=== PATIENT | female | born 2000 | race Hispanic/Latino ===

== ENCOUNTER 2019-01-02 14:38 | Emergency (ER) | payer MEDICAID, SELFPAY ==
[2019-01-02 15:01] LABS: #Basophils 0.1 thou/uL (0.0-0.2); #Eosinphils 0.3 thou/uL (0.0-0.7); #Lymphocytes 3.4 thou/uL (1.20-3.40); #Monocytes 0.5 thou/uL (0.11-0.59); %Basophils 0.9 % (0.0-1.0); %Eosinophils 3.5 % (0.0-10.0); %Lymphocytes 47.2 % (28.0-48.0); %Monocytes 6.4 % (0.0-4.0); %Neutrophils 41.9 % (31.0-61.0); Hemoglobin 13.1 g/dL (12.0-16.0); Mean Corpuscular HGB CONC 33.8 g/dL (32.0-36.0); Mean Corpuscular Hemoglobin 28.2 pg (25.0-35.0); Mean Corpuscular Volume 83.5 fL (78.0-98.0); Mean Platelet Volume 6.8 fL (7.4-10.4); Platelet Count 416 thou/uL (130-400); RBC Distribution Width 11.9 % (11.5-14.5); Red Blood Cell (RBC) Count 4.63 mill/uL (4.00-5.20); White Blood Cell (WBC) Count 7.1 thou/uL (4.8-10.8)
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
[2019-01-02 15:21] LABS: ALT (SGPT) 13 U/L (8-55); AST (SGOT) 19 U/L (5-30); Albumin 4.9 g/dL (3.5-5.0); Alcohol Less than 10 mg/dL (Less than 10); Alkaline Phosphatase 73 U/L (40-150); Anion Gap 13 mmol/L (10-20); BUN (Urea Nitrogen) 10 mg/dL (8.4-21.0); Bilirubin, Total 0.4 mg/dL (0.2-1.2); Calc. Creatinine Clearance 0 mL/min (70-130); Calcium 9.8 mg/dL (7.8-10.44); Carbon Dioxide 24 mmol/L (22-29); Chloride 102 mmol/L (98-107); Estimated GFR-MDRD Greater than 90; Globulin 3.2 g/dL (2.4-3.5); Glucose 96 mg/dL (70-105); Potassium 3.7 mmol/L (3.5-5.1); Protein, Total 8.1 g/dL (6.0-8.3); Sodium 135 mmol/L (136-145)
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
[2019-01-02] MEDS ORDERED: Morphine 4 MG/ML VIAL ONE (16:14)
[2019-01-02] MEDS ORDERED: Ondansetron PF 4 MG/2 ML Vial ONE (16:14)
== END 2019-01-02 14:45 | disposition home or self-care (01) ==
LOC: ERS 14:38
DX: S82.142A Displaced bicondylar fracture of left tibia, initial encounter for closed fracture (principal); S00.83XA Contusion of other part of head, initial encounter; V03.99XA Pedestrian with other conveyance injured in collision with car, pick-up truck or van, unspecified whether traffic or nontraffic accident, initial encounter
CPT/HCPCS: 70450; 80053; 80307; 85025; 96374; 96375; G0390; J2270; J2405

== ENCOUNTER 2019-01-05 12:49 | Outpatient (CLI) | payer SELFPAY ==
[2019-01-05 14:58] LABS: BHCG - Serum Negative (NEGATIVE); Pregs Control Background? CLEAR/WHITE (CLR/WHITE); Pregs Control Bar Appear? YES (CONTROL BAR)
== END 2019-01-05 12:50 | disposition home or self-care (01) ==
LOC: LABBT 12:49
PROVIDERS: ATTEND Orthopaedic Surgery
DX: Z01.812 Encounter for preprocedural laboratory examination (principal); S82.142A Displaced bicondylar fracture of left tibia, initial encounter for closed fracture
CPT/HCPCS: 84703

== ENCOUNTER 2019-01-07 08:03 | Day surgery (SDC) | payer SELFPAY ==
[2019-01-05 13:23] VITALS: BMI 24.5
[2019-01-07] MEDS ORDERED: Scopolamine 1.5 mg/72 hour Patch ONE (09:05)
[2019-01-07] MEDS ORDERED: Midazolam HCl 2 mg/2 ml Vial ONE (09:05)
[2019-01-07] MEDS ORDERED: Fentanyl 100 MCG/2 ML VIAL ONE ×3 (09:05→11:40)
[2019-01-07] MEDS ORDERED: Acetaminophen/Codeine 30-300mg Tablet ONE (13:28)
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
[2019-01-07] MEDS ORDERED: Bupivacaine HCl 0.5%/Epinephrine 1:200,000/PF 30 ml Vial ONE (17:36)
[2019-01-07] MEDS ORDERED: PROPOFOL 200 MG/20 ML VIAL ONE (18:15)
[2019-01-07] MEDS ORDERED: Ondansetron PF 4 MG/2 ML Vial ONE (18:15)
[2019-01-07] MEDS ORDERED: Dexamethasone 20 MG/5 ML VIAL ONE (18:15)
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
== END 2019-01-08 13:50 | disposition home or self-care (01) ==
LOC: SDC 08:03
PROVIDERS: ATTEND Orthopaedic Surgery
PROC: 3E0T3BZ Introduction of Anesthetic Agent into Peripheral Nerves and Plexi, Percutaneous Approach (ICD-10-PCS; principal; 2019-01-07)
PROC: 0QSH04Z Reposition Left Tibia with Internal Fixation Device, Open Approach (ICD-10-PCS; principal; 2019-01-07)
DX: S82.122A Displaced fracture of lateral condyle of left tibia, initial encounter for closed fracture (principal); G89.18 Other acute postprocedural pain; V03.99XA Pedestrian with other conveyance injured in collision with car, pick-up truck or van, unspecified whether traffic or nontraffic accident, initial encounter
CPT/HCPCS: 76000; C1713; J0670; J0690; J1100; J2250; J2405; J2704; J3010